=== PATIENT | female | born 1960 | race Caucasian/White ===

== ENCOUNTER → 2024-09-03 | Outpatient (CLI) | payer MEDICARE, SELFPAY ==
[2024-09-03 10:17] LABS: Basophils # (Auto) 0.1 Thou/mm3 (0.0-0.2); Basophils % (Auto) 1 % (0-2.5); Eosinophils # (Auto) 0.2 Thou/mm3 (0.0-0.5); Eosinophils % (Auto) 4 % (0-10); Hemoglobin 15.9 g/dL (12.0-16.0); Immature Granulocytes % (Auto) 0 % (0-0); Immature Granulocytes Auto 0.02 Thou/mm3 (0.00-0.00); Lymphocytes # (Auto) 2.4 Thou/mm3 (1.0-4.8); Lymphocytes % (Auto) 35 % (10-50); Mean Corpuscular HGB Conc 33.8 g/dl (31.0-37.0); Mean Corpuscular Hemoglobin 30.1 pg (25.0-35.0); Mean Corpuscular Volume 89 fL (80-100); Monocytes # (Auto) 0.7 Thou/mm3 (0.0-0.8); Monocytes % (Auto) 10 % (0-12); Neutrophils # (Auto) 3.5 Thou/mm3 (1.8-7.7); Neutrophils % (Auto) 50 % (37-80); Nucleated Red Blood Cell % 0 /100 WBC (0); Platelet Count 210 Thou/mm3 (140-440); RDW Standard Deviation 42.6 fL (36.4-46.3); Red Blood Count 5.29 Miln/mm3 (4.00-5.20); White Blood Count 6.9 Thou/mm3 (3.6-11.0)
[2024-09-03 10:47] LABS: Alanine Aminotransferase 22 U/L (10-49); Albumin, Serum 4.7 gm/dL (3.4-4.8); Alkaline Phosphatase 77 U/L (46-116); Anion Gap 11 (7-16); Aspartate Amino Transferase 22 U/L (0-34); BUN/Creatinine Ratio 23 Ratio (12-20); Blood Urea Nitrogen 28 mg/dL (9-23); Calcium 11.2 mg/dL (8.3-10.6); Calcium (Corrected) 11.2 mg/dL (8.5-10.1); Carbon Dioxide 27.1 mMol/L (20.0-31.0); Chloride 103 mMol/L (98-107); Creatinine (Component) 1.2 mg/dL (0.6-1.3); Globulin 2.4 gm/dL (2.3-3.5); Glucose 120 mg/dL (74-106); Osmolality,Calculated 287 (275-295); Potassium 4.5 mMol/L (3.4-5.1); Sodium 141 mMol/L (136-145); Total Protein 7.1 gm/dL (5.7-8.2); eGFR 50 See Note
== END | disposition home or self-care (01) ==
LOC: SCTO 08:56
PROVIDERS: PCP Family Medicine; Referring Provider Internal Medicine Hematology & Oncology; Visit Provider Internal Medicine Hematology & Oncology
DX: C50.411 Malignant neoplasm of upper-outer quadrant of right female breast (principal)
CPT/HCPCS: 36415; 80053; 85025

== ENCOUNTER 2024-11-06 10:54 | Outpatient (RCR) | payer MEDICARE, SELFPAY | END 2024-11-10 23:59 | disposition home or self-care (01) | LOC: SCTC 10:54 | PROVIDERS: PCP Family Medicine; Referring Provider Family Medicine; Visit Provider Nurse Practitioner Family | DX: C50.411 Malignant neoplasm of upper-outer quadrant of right female breast (principal); Z17.0 Estrogen receptor positive status [ER+]; Z17.21 Progesterone receptor positive status; Z17.32 Human epidermal growth factor receptor 2 negative status; Z90.11 Acquired absence of right breast and nipple; Z92.3 Personal history of irradiation; M85.89 Other specified disorders of bone density and structure, multiple sites; Z79.811 Long term (current) use of aromatase inhibitors; K22.70 Barrett's esophagus without dysplasia; Z87.891 Personal history of nicotine dependence | CPT/HCPCS: 99212; G0463 ==

== ENCOUNTER → 2024-11-13 | Outpatient (CLI) | payer MEDICARE, SELFPAY ==
--- NOTE | 2024-11-13 11:15 | XR_ITS ---
Examination: Diagnostic digital mammography, bilateral Computer aided detection 3-D breast Tomosynthesis, bilateral Date and time of exam: November 13, 2024 1132 hours Compared to mammograms dating to July 17, 2020 Technique: Nonmagnified MLO, CC views of the breasts to been obtained, reconstructed from 3-D Tomosynthesis images. R2 computer aided detection program utilized for evaluation of suspicious masses and/or abnormal calcifications. 3-D Tomosynthesis images obtained. Findings: Scattered areas of fibroglandular density Skin lesion outer right breast Scar formation right breast 10:00 oval mass circumscribed corresponding to 10:00 retroareolar cystic mass consistent with seroma on ultrasound examination right breast today, measuring 4.4 cm Impression: BI-RADS Category 2: Benign findings Recommend yearly follow-up mammography The seroma accumulation 10:00 position right breast is amenable to ultrasound-guided aspiration as clinically warranted.
--- NOTE | 2024-11-13 11:45 | XR_ITS ---
Examination: Breast ultrasound, unilateral, right complete Date and time of exam: November 13, 2024 1138 hours INDICATIONS: Personal history right breast lumpectomy June 2023, mammogram November 16, 2023 5 cm mass upper outer right breast Technique: Real-time aguayo scale ultrasonographic imaging performed right breast including all 4 quadrants as well as nipple retroareolar and axillary region. Findings: 10:00 retroareolar cystic mass consistent with seroma 4.4 x 2.7 x 3.3 cm Retroareolar cyst 5 x 7 mm 2:00 calcification 3 x 3 mm IMPRESSION: Findings most consistent with seroma in the 10:00 to retroareolar region right breast, clinical correlation advised This is amenable to ultrasound-guided aspiration as clinically warranted
== END | disposition home or self-care (01) ==
LOC: CDIM 11:13
PROVIDERS: PCP Family Medicine; Referring Provider Surgery; Visit Provider Surgery
DX: C50.411 Malignant neoplasm of upper-outer quadrant of right female breast (principal); R92.323 Mammographic fibroglandular density, bilateral breasts; R92.8 Other abnormal and inconclusive findings on diagnostic imaging of breast
CPT/HCPCS: 76641; 77062; 77066; G0279

== ENCOUNTER → 2024-12-04 | Outpatient (CLI) | payer MEDICARE, SELFPAY ==
[2024-12-04 08:38] LABS: Misc Send Out* See Sep Rpt
== END | disposition home or self-care (01) ==
PROVIDERS: PCP Family Medicine; Referring Provider Nurse Practitioner Family; Visit Provider Nurse Practitioner Family
DX: C50.411 Malignant neoplasm of upper-outer quadrant of right female breast (principal)

== ENCOUNTER → 2024-12-28 | Outpatient (CLI) | payer MEDICARE, SELFPAY ==
[2024-12-28 13:24] LABS: Basophils # (Auto) 0.1 Thou/mm3 (0.0-0.2); Basophils % (Auto) 1 % (0-2.5); Eosinophils # (Auto) 0.3 Thou/mm3 (0.0-0.5); Eosinophils % (Auto) 4 % (0-10); Hematocrit 41.1 % (36.0-46.0); Hemoglobin 14.2 g/dL (12.0-16.0); Immature Granulocytes Auto 0.04 Thou/mm3 (0.00-0.00); Lymphocytes # (Auto) 3.1 Thou/mm3 (1.0-4.8); Lymphocytes % (Auto) 38 % (10-50); Mean Corpuscular HGB Conc 34.5 g/dl (31.0-37.0); Mean Corpuscular Hemoglobin 30.4 pg (25.0-35.0); Mean Corpuscular Volume 88 fL (80-100); Monocytes # (Auto) 0.7 Thou/mm3 (0.0-0.8); Monocytes % (Auto) 8 % (0-12); Neutrophils # (Auto) 4.1 Thou/mm3 (1.8-7.7); Neutrophils % (Auto) 50 % (37-80); Nucleated Red Blood Cell # 0.00 Thou/mm3 (0.00-0.00); Nucleated Red Blood Cell % 0 /100 WBC (0); Platelet Count 235 Thou/mm3 (140-440); RDW Standard Deviation 43.5 fL (36.4-46.3); Red Blood Count 4.67 Miln/mm3 (4.00-5.20); White Blood Count 8.2 Thou/mm3 (3.6-11.0)
[2024-12-28 13:35] LABS: Alanine Aminotransferase 17 U/L (10-49); Albumin, Serum 4.8 gm/dL (3.4-4.8); Albumin/Globulin Ratio 1.8 (1.2-2.2); Alkaline Phosphatase 70 U/L (46-116); Anion Gap 15 (7-16); Aspartate Amino Transferase 19 U/L (0-34); BUN/Creatinine Ratio 19 Ratio (12-20); Bilirubin,Total 0.9 mg/dL (0.3-1.2); Blood Urea Nitrogen 28 mg/dL (9-23); Calcium 10.6 mg/dL (8.3-10.6); Calcium (Corrected) 10.6 mg/dL (8.5-10.1); Carbon Dioxide 24.4 mMol/L (20.0-31.0); Chloride 104 mMol/L (98-107); Creatinine (Component) 1.5 mg/dL (0.6-1.3); Globulin 2.6 gm/dL (2.3-3.5); Glucose 113 mg/dL (74-106); Osmolality,Calculated 291 (275-295); Potassium 4.0 mMol/L (3.4-5.1); Sodium 143 mMol/L (136-145); Total Protein 7.4 gm/dL (5.7-8.2); eGFR 38 See Note
== END | disposition home or self-care (01) ==
LOC: SCTO 12:17
PROVIDERS: PCP Family Medicine; Referring Provider Nurse Practitioner Family; Visit Provider Nurse Practitioner Family
DX: C50.411 Malignant neoplasm of upper-outer quadrant of right female breast (principal)
CPT/HCPCS: 36415; 80053; 85025

== ENCOUNTER 2025-01-02 11:00 | Outpatient (RCR) | payer MEDICARE, SELFPAY | END 2025-01-10 23:59 | disposition home or self-care (01) | LOC: SCTC 11:00 | PROVIDERS: PCP Family Medicine; Referring Provider Family Medicine; Visit Provider Nurse Practitioner Family | DX: C50.411 Malignant neoplasm of upper-outer quadrant of right female breast (principal); Z17.0 Estrogen receptor positive status [ER+]; Z17.21 Progesterone receptor positive status; Z17.32 Human epidermal growth factor receptor 2 negative status; Z90.11 Acquired absence of right breast and nipple; Z92.3 Personal history of irradiation; Z79.811 Long term (current) use of aromatase inhibitors; M85.89 Other specified disorders of bone density and structure, multiple sites; R91.8 Other nonspecific abnormal finding of lung field; K22.70 Barrett's esophagus without dysplasia; Z87.891 Personal history of nicotine dependence | CPT/HCPCS: 99212; G0463 ==

== ENCOUNTER → 2025-01-07 | Outpatient (CLI) | payer MEDICARE, SELFPAY ==
--- NOTE | 2025-01-07 11:00 | XR_ITS ---
Examination: CT chest with intravenous contrast CT chest without intravenous contrast 2-D reconstructions Date and time of exam:January 07, [address] chest abdomen pelvis December 01, 2009 INDICATIONS: Diagnosis malignant neoplasm upper outer quadrant right female breast, diagnosis 18 months ago, coccidioidomycosis diagnosis 20 years ago CTDI:vol (mGy) 21.7 DLP: (mGycm) 772 Technique: Multiple axial sections of the thorax have been obtained. 3 mm slice thickness, from the hemidiaphragms to above the apices of the lungs. Mediastinal and lung density settings have been obtained. Intravenous contrast administered 30 cc Isovue-370. Noncontrast images have also been obtained. 2-D sagittal coronal images obtained. Low dose protocols were performed. One or more of the following dose reduction techniques were used; automated exposure control, adjustment of the mA and/or KV according to patient size, use of iterative reconstruction technique. Findings: Thoracic aortic calcification no aneurysmal dilatation No pulmonary artery filling defects No paratracheal tracheobronchial or bronchopulmonary adenopathy Mass 10:00 position right breast 4.2 cm, which may be partially cystic, please see the ultrasound report November 13, 2024 4 mm pulmonary nodule left upper lobe image 141 6 mm and 13 mm pulmonary nodules left upper lobe, the 13 mm nodule contains calcification Lobular mass 39 mm with calcification in the left upper lobe image 160 4 mm pulmonary nodule right middle lobe image 212 No visualized liver or splenic lesion No biliary tract dilatation No hydronephrosis IMPRESSION: Mass 10:00 position right breast 4.2 cm, please see the ultrasound report 03/15/2025 Pulmonary masses as above, the largest are calcified and may relate to the patient's history of coccidiomycosis, recommend [address] chest without contrast follow-up
== END | disposition home or self-care (01) ==
PROVIDERS: PCP Family Medicine; Referring Provider Nurse Practitioner Family; Visit Provider Nurse Practitioner Family
DX: N63.11 Unspecified lump in the right breast, upper outer quadrant (principal); R91.8 Other nonspecific abnormal finding of lung field; C50.411 Malignant neoplasm of upper-outer quadrant of right female breast
CPT/HCPCS: 71270; A4649; Q9967

== ENCOUNTER → 2025-02-04 | Outpatient (CLI) | payer MEDICARE, SELFPAY ==
[2025-02-04 10:37] LABS: Basophils # (Auto) 0.1 Thou/mm3 (0.0-0.2); Basophils % (Auto) 1 % (0-2.5); Eosinophils # (Auto) 0.2 Thou/mm3 (0.0-0.5); Eosinophils % (Auto) 3 % (0-10); Hematocrit 42.8 % (36.0-46.0); Hemoglobin 14.4 g/dL (12.0-16.0); Immature Granulocytes Auto 0.03 Thou/mm3 (0.00-0.00); Lymphocytes # (Auto) 2.5 Thou/mm3 (1.0-4.8); Lymphocytes % (Auto) 32 % (10-50); Mean Corpuscular HGB Conc 33.6 g/dl (31.0-37.0); Mean Corpuscular Hemoglobin 30.5 pg (25.0-35.0); Mean Corpuscular Volume 91 fL (80-100); Monocytes # (Auto) 0.7 Thou/mm3 (0.0-0.8); Monocytes % (Auto) 9 % (0-12); Neutrophils # (Auto) 4.4 Thou/mm3 (1.8-7.7); Neutrophils % (Auto) 55 % (37-80); Nucleated Red Blood Cell # 0.00 Thou/mm3 (0.00-0.00); Nucleated Red Blood Cell % 0 /100 WBC (0); Platelet Count 238 Thou/mm3 (140-440); RDW Standard Deviation 42.4 fL (36.4-46.3); Red Blood Count 4.72 Miln/mm3 (4.00-5.20); White Blood Count 8.0 Thou/mm3 (3.6-11.0)
[2025-02-04 10:50] LABS: Alanine Aminotransferase 15 U/L (10-49); Albumin, Serum 4.6 gm/dL (3.4-4.8); Albumin/Globulin Ratio 1.6 (1.2-2.2); Alkaline Phosphatase 73 U/L (46-116); Anion Gap 13 (7-16); Aspartate Amino Transferase 21 U/L (0-34); BUN/Creatinine Ratio 13 Ratio (12-20); Bilirubin,Total 0.7 mg/dL (0.3-1.2); Blood Urea Nitrogen 21 mg/dL (9-23); Calcium 11.0 mg/dL (8.3-10.6); Calcium (Corrected) 11.0 mg/dL (8.5-10.1); Carbon Dioxide 26.8 mMol/L (20.0-31.0); Chloride 103 mMol/L (98-107); Creatinine (Component) 1.6 mg/dL (0.6-1.3); Globulin 2.9 gm/dL (2.3-3.5); Glucose 110 mg/dL (74-106); Osmolality,Calculated 288 (275-295); Potassium 3.7 mMol/L (3.4-5.1); Sodium 143 mMol/L (136-145); Total Protein 7.5 gm/dL (5.7-8.2); eGFR 36 See Note
== END | disposition home or self-care (01) ==
LOC: SCTO 08:55
PROVIDERS: PCP Family Medicine; Referring Provider Nurse Practitioner Family; Visit Provider Nurse Practitioner Family
DX: C50.411 Malignant neoplasm of upper-outer quadrant of right female breast (principal); M85.80 Other specified disorders of bone density and structure, unspecified site
CPT/HCPCS: 36415; 80053; 85025

== ENCOUNTER 2025-02-06 12:56 | Outpatient (RCR) | payer MEDICARE, SELFPAY | END 2025-02-10 23:59 | disposition home or self-care (01) | LOC: SCTC 12:56 | PROVIDERS: PCP Family Medicine; Referring Provider Family Medicine; Visit Provider Nurse Practitioner Family | DX: C50.411 Malignant neoplasm of upper-outer quadrant of right female breast (principal); Z17.0 Estrogen receptor positive status [ER+]; Z17.21 Progesterone receptor positive status; Z17.32 Human epidermal growth factor receptor 2 negative status; Z90.11 Acquired absence of right breast and nipple; Z79.811 Long term (current) use of aromatase inhibitors; Z86.19 Personal history of other infectious and parasitic diseases; M85.89 Other specified disorders of bone density and structure, multiple sites; K22.70 Barrett's esophagus without dysplasia; Z87.891 Personal history of nicotine dependence | CPT/HCPCS: 99212; G0463 ==

== ENCOUNTER 2025-03-11 15:24 | Outpatient (RCR) | payer MEDICARE, SELFPAY ==
--- NOTE | 2025-03-17 21:14 | CTCFLWUP_ITS ---
Patient: JEREMY MIKE : 1960 Page 2 of 2 FOLLOW UP NOTE DATE OF SERVICE: 03/11/2025 NAME: JEREMY MIKE ACCOUNT: [id number] : 1960 AGE: 64 INTERVAL HISTORY: Subjective History of Present Illness Jeremy Mike is a patient with a history of stage one breast cancer, ER positive, HER2 negative, well-differentiated, who underwent lumpectomy in 2023 followed by partial radiation and is currently on anastrozole therapy. She presents for follow-up care related to her breast cancer treatment and man agement of hypercalcemia. The patient has been adherent to her anastrozole treatment regimen following her breast cancer diagnosis and treatment. Her Prosigna score was 31, indicating low risk, with tumor size less than 2 cm and no lymph node involvement. She has a history of coccidioidomycosis (Valley fever). The patient has been experiencing elevated calcium levels, which prompted discontinuation of her calcium and vitamin D supplements. High calcium levels were noted in August and November. She has been advised to continue vitamin D 1000 units daily despite stopping the supplements. Her kidney function is at 36, which is below the normal level of 60. Recent imaging showed a right breast seroma and pulmonary nodules measuring 6 mm, 30 mm, and 13 mm, with the lung findings likely attributed to her history of Valley fever. Her bone density testing in 2023 revealed osteopenia. Medical History - Stage one breast cancer, ER positive, HER2 negative, well-differentiated - History of coccidioidomycosis (Valley fever) - Osteopenia diagnosed in 2023 - Hypercalcemia - Chronic kidney disease with kidney function at 36 Surgical History - Lumpectomy in 2023 for stage one breast cancer, ER positive, HER2 negative, well-differentiated Medications and Supplements - Anastrozole - Calcium supplements - Stopped due to high calcium levels - Vitamin D supplements - Stopped due to high calcium levels - Vitamin D 1000 units daily Objective Laboratory, Imaging, and Diagnostic Test Results - Date: 03/04/2025 - Mammogram: Negative - Date: 02/26/2025 - PRAV: Negative - Prosigna score: 31 (low risk) - CT scan (December 2024): 4.2 cm mass in right breast, pulmonary nodules (6 mm, 30 mm, 13 mm), right breast seroma noted, no evidence of cancer in bones - Bone density (2023): Osteopenia - Kidney function: 36 (normal 60) - Calcium levels: High (noted in August and November) ONCOLOGY HISTORY: DIAGNOSIS: Stage Ia (pT1c, sn N0, cM0), ER positive, IA positive, HER2/eleonora negative well-differentiated invasive ductal carcinoma of the right breast. S/p right breast lumpectomy and sentinel lymph node biopsy (06/20/2023) S/p partial breast irradiation (06/27/2023 - 07/10/2023) Prosigna (R) breast cancer gene signature assay score 31 (low risk) Macrolobulated partially calcified mass contiguous with the infrahilar region on the left side measuring 4.[address] scan of the chest thought to be benign (07/14/2023) Irregular lobulated solid coarsely calcified left lung mass likely benign (PET/CT scan 08/18/2023) Hypertension. History of osteopenia. Angela's esophagus. Mitral valve prolapse DATE OF DIAGNOSIS: STAGE/TNM: TREATMENT HISTORY: Care?Plan Start?Date Cycle Day Intent HISTORY OF PRESENT ILLNESS: Jeremy Mike is a 64-year-old ENG speaking female with history of hypertension, Angela's esophagus, mitral valve prolapse as well as remote history of valley fever has the following oncology history. 07/17/2020: Bone density test? 08/31/2021: Bilateral screening mammograms? 12/08/2022: Bilateral screening mammograms 04/12/2023: Bilateral breast ultrasound and bilateral diagnostic mammogram 05/11/2023: Ms. Mike had right breast biopsy. Pathology is not available to [facility] 06/20/2023: Right breast tylectomy, sentinel lymph node biopsy, cavity evaluation device placement. 06/20/2023: Prosigna (R) breast cancer gene signature assay test? 08/18/2023: PET/CT scan done 09/14/2023: Ms. Mike is started on anastrozole as well as Citracal. 10/18/2023: Bone density test? 12/20/2023: CT scan of the chest with IV contrast 02/14/2024: CT scan of the chest? 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 Tobacco?Pack?per?Day:?1 Tobacco?Use?Years:?20 Tobacco?Use:?Quit?25?yrs?ago ETOH?Use:?Denies Drug?Note:?Denies Social?History?Note:?Lives?with? [employer] OPERATOR HELPER HISTORY: Menarche?-?Age:?11 Menopause:?mid?40's Hormone?Use:? control medication - 2-4yrs :?3 Live?Births:?3 Age?1st?:?17 MEDICATIONS: 1. anastrozole - 1 mg 1 mg once 2. atenolol - 50 mg 1 tab Daily 3. ezetimibe - 10 mg 1 tab Daily 4. hydroCHLOROthiazide - 12.5 mg 1 tab Daily 5. pantoprazole - 40 mg 1 Every day before sleep 6. Sudafed PE - 10 mg 1 tab Daily 7. valsartan - 160 mg 1 Capsule Daily Medications Last Reconciled by Yeimi Álvarez MD on 03/11/2025 ALLERGIES: REVIEW OF SYSTEMS: A complete 14-point review of systems was performed and is negative except as noted in interval history. PHYSICAL EXAMINATION: VITAL SIGNS: Temperature?99, B/P?122/78, Oxygen?Saturation?91% Weight?170?lbs PAIN: 0 - No pain ECOG Performance Status: 0 - Asymptomatic and fully active GENERAL APPEARANCE: Appears well, in no apparent distress, appropriately interactive. HEENT: Normocephalic, no temporal wasting, normal conjunctiva, no scleral icterus, normal hearing, lips without lesions, neck normal range of motion. CARDIOVASCULAR: Not assessed. PULMONARY: Normal respiratory effort, no respiratory distress or use of accessory muscles, speaking in full sentences, no tachypnea. EXTREMITIES: No pedal edema or cyanosis. SKIN: Normal skin appearance. NEUROLOGIC: Alert and oriented x4. PSHYCHIATRIC: Appropriate affect, mood normal, behavior normal, intact thought and speech. LABORATORY DATA: I have personally reviewed and interpreted each of the patient?s relevant lab tests, abnormal findings are below: Date ASSESSMENT/PLAN: History of Breast Cancer Low risk Prosigna (R) breast cancer gene signature assay score of 31. Stage Ia (pT1c, sn N0, cM0), ER positive, IA positive, HER2/eleonora negative well- differentiated invasive ductal carcinoma of the right breast. S/p right breast lumpectomy and sentinel lymph node biopsy (06/20/2023). A 1 cm superficial wound is present in the incision site with healthy granulation tissue. No evidence of any infection. S/p partial breast irradiation (06/27/2023 - 07/10/2023) Patient has been on anastrozole since September 14, 2023. Previous CT scan of the chest at [facility] done on 02/14/2024 showed lobulated partially calcified pulmonary lesion in the posterior inferior left upper lobe, abutting the major fissure without any significant increase in size. Thought to be benign. History of valley fever. Sabrina negative, 12/23/2024 Previous breast imaging done in November 2024 showed findings consistent with seroma that is amendable to ultrasound-guided aspiration, patient reports that Dr. Marcos is aware of the breast imaging recommendations and is not recommending any intervention at this time, patient is declining ultrasound-guided aspiration, her reasoning is that she has no breast concerns and her thyroid test was negative. Assessment: A CT scan was previously ordered but cancelled by patient; patient rescheduled. Plan: - Continue anastrozole - complete CT scan -Requesting last note from Dr. Marcos Osteopenia Assessment: Patient has a history of osteopenia. Plan: - Order Reclast infusion,annually - CBC CMP prior to infusions -Hold calcium supplements for the next month as her calcium is elevated, patient will repeat CMP prior to follow-up, if calcium remains elevated we will consider CT chest abdomen and pelvis. Angela's Esophagus Assessment: Patient follows up with GI, Dr. Teran for Angela's esophagus. Recent EGD and colonoscopy performed at the beginning of the year showed no changes according to patient, we do not have records. Plan: - Continue follow-up with Dr. Teran - Patient was told to repeat colonoscopy in 10 years, 2034 - Request EGD and colonoscopy records. Preventive Care Assessment: Patient is a former smoker who quit 25-30 years ago after smoking since age 15. She denies current alcohol use. No reported cough or weight loss. Plan: - Complete previously ordered CT of chest Hypercalcemia Assessment: Patient has elevated calcium levels noted in August and November 2024. Calcium and vitamin D supplements have been discontinued. Kidney function is decreased at 36 (normal 60). No evidence of cancer in bones from recent CT scan. Differential diagnosis includes hyperparathyroidism given the persistent hypercalcemia despite supplement discontinuation. Plan: - Check parathyroid hormone (PTH) and parathyroid hormone-related peptide levels - Reclast injections for hypercalcemia pending approval - Continue vitamin D 1000 units daily Pulmonary nodules Assessment: CT scan in December showed pulmonary nodules measuring 6 mm, 30 mm, and 13 mm. History of coccidioidomycosis (Valley fever) likely explains the lung findings rather than metastatic disease. Plan: Osteopenia Assessment: Bone density study in 2023 showed osteopenia. Continue following up with PCP for management of chronic conditions ORDERS: Order # Description [id number] Bone Scan, Whole body [id number] Serum Protein Electrophoresis + Serum Immunofixation Electrophoresis + Quant Immunoglobulins + Free kappa and lambda light chains plus ratio, quantitative + Beta-2 Microglobulin + Urine Protien Electrophoresis + Urine Immunification Electrophoresis [id number] MD Follow Up 2 Months RETURN TO CLINIC: I reviewed the diagnosis, prognosis, and recommended treatment/procedure options with the patient (and/or their legal phlebotomy services representative), including the potential benefits, risks, side effects and alternative therapies. We also discussed the option of no treatment and the possibility of clinical trial participation, if applicable. All questions were addressed, and they demonstrated understanding. They provided informed consent to proceed with the proposed plan of care. BILLING AND COMPLIANCE: I reviewed external records from providers outside my specialty as summarized above. I spent a total of 50 minutes on this patient?s care on the day of their visit excluding time spent related to any billed procedures. This time includes time spent with the patient as well as time spent documenting in the medical record, reviewing patients records and tests, obtaining history, placing orders, communicating with other healthcare professionals, counseling the patient, family or caregiver, and/or care coordination for the diagnoses above. Electronically Signed by: Dion Barger MD T: 9:12 PM CC: PCP: Arnel Alexandra Referring: Arnel Alexandra This document was completed utilizing speech recognition software. Grammatical errors, random word insertions, pronoun errors, and incomplete sentences are an occasional consequence of this system due to software limitations, ambient noise, and hardware issues. Any formal questions or concerns about the content, text or information contained within the body of this dictation should be directly addressed to the provider for clarification.
== END 2025-03-12 23:59 | disposition home or self-care (01) ==
LOC: SCTC 15:24
PROVIDERS: PCP Family Medicine; Referring Provider Family Medicine; Visit Provider Internal Medicine Hematology & Oncology
DX: C50.411 Malignant neoplasm of upper-outer quadrant of right female breast (principal); Z17.0 Estrogen receptor positive status [ER+]; Z17.21 Progesterone receptor positive status; Z17.32 Human epidermal growth factor receptor 2 negative status; Z90.11 Acquired absence of right breast and nipple; Z92.3 Personal history of irradiation; Z79.811 Long term (current) use of aromatase inhibitors; Z86.19 Personal history of other infectious and parasitic diseases; M85.89 Other specified disorders of bone density and structure, multiple sites; K22.70 Barrett's esophagus without dysplasia; Z87.891 Personal history of nicotine dependence; E83.52 Hypercalcemia; R91.8 Other nonspecific abnormal finding of lung field
CPT/HCPCS: 99212; G0463

== ENCOUNTER → 2025-03-26 | Outpatient (CLI) | payer MEDICARE, SELFPAY ==
[2025-03-26 12:39] LABS: Misc Send Out* See Sep Rpt
[2025-03-26 14:19] LABS: Parathyroid Hormone Intact 95.6 pg/ml (18.5-88.0)
[2025-03-30 23:34] LABS: Albumin, Random Urine 100 %; Alpha 1 Globulin, Random Urine 0 %; Alpha 2 Globulin, Random Urine 0 %; Beta Globulin, Random Urine 0 %; Gamma Globulin, Random Urine 0 %; Protein,Total,Random Urine 16 mg/dL (5-24); Protein/Creatinine Ratio 92 mg/g creat (24-184)
[2025-04-01 06:39] LABS: Creatinine, Random Urine 174 mg/dL (20-275); Protein/Creatinine Ratio mg/mg 0.092 (0.024-0.184)
[2025-04-02 22:03] LABS: Albumin 5.3 g/dL (3.8-4.8); Alpha-1-Globulin 0.3 g/dL (0.2-0.3); Alpha-2-Globulin 0.7 g/dL (0.5-0.9); Beta-1-Globulin 0.5 g/dL (0.4-0.6); Beta-2-globulin 0.4 g/dL (0.2-0.5); Gamma Globulin 0.9 g/dL (0.8-1.7); Immunoglobulin A 151 mg/dL (70-320); Immunoglobulin G 975 mg/dL (600-1540); Kappa Light Chain, Free 18.5 mg/L (3.3-19.4); Lambda Light Chain, Free 17.0 mg/L (5.7-26.3)
[2025-04-03 06:49] LABS: Beta 2 Microglobulin 2.62 mg/L (< OR = 2.51); Immunoglobulin M 125 mg/dL (50-300); Kappa/Lambda, Free Ratio 1.09 (0.26-1.65); Protein, total, serum 7.9 g/dL (6.1-8.1)
== END | disposition home or self-care (01) ==
LOC: COPL 12:17
PROVIDERS: PCP Family Medicine; Referring Provider Internal Medicine Hematology & Oncology; Visit Provider Internal Medicine Hematology & Oncology
DX: C50.411 Malignant neoplasm of upper-outer quadrant of right female breast (principal); M85.80 Other specified disorders of bone density and structure, unspecified site
CPT/HCPCS: 36415; 82232; 82570; 82784; 83521; 83970; 84155; 84156; 84165; 84166; 86334; 86335

== ENCOUNTER → 2025-03-29 | Outpatient (CLI) | payer MEDICARE, SELFPAY ==
--- NOTE | 2025-03-29 13:30 | XR_ITS ---
Examination: Bone scan whole body, radioisotope Date and time of exam: March 29, 2025, 0914 hours INDICATIONS: Diagnosis malignant neoplasm of upper-outer quadrant of right female breast, right breast carcinoma lumpectomy 2019 for partial radiation therapy on hormone therapy, right sharp shoulder pain this month. Technique: Study has been performed with intravenous administration of 24.3 mci 99M technetium MDP. Anterior, posterior whole body images are obtained. Images have been obtained including the lower extremities. Findings: Symmetrical isotope accumulation No pattern diagnostic for osseous metastatic disease IMPRESSION: No pattern diagnostic for osseous metastatic disease Given the patient's presentation and history, consider MRI right shoulder follow-up pre and post intravenous gadolinium
== END | disposition home or self-care (01) ==
LOC: SNUC 08:28
PROVIDERS: Referring Provider Internal Medicine Hematology & Oncology; Visit Provider Internal Medicine Hematology & Oncology
DX: M85.80 Other specified disorders of bone density and structure, unspecified site (principal); C50.411 Malignant neoplasm of upper-outer quadrant of right female breast
CPT/HCPCS: 78306; A9503